=== PATIENT | male | born 1975 | race African-American/Black ===

== ENCOUNTER 2017-03-08 08:12 | Emergency (ER) | payer MEDICAID, OTHER ==
[~2017-03-08] VITALS: Ht 180.3 cm; Wt 82.0 kg
[~2017-03-08 08:12] MED LIST: OMEP20CA10 PO; ONDA4TAB21 PO
[2017-03-08] MEDS ORDERED: SODIUM CHLORIDE 0.9% 1,000 ML IV ONE (09:40)
[2017-03-08] MEDS ORDERED: MORPHINE SULFATE 4 MG/ML CPJ (NOT FOR IM USE) IV STA (09:40)
[2017-03-08] MEDS ORDERED: ONDANSETRON HCL 4MG/2ML VIAL IV ONE (09:45)
[2017-03-08 10:04] LABS: HEMATOCRIT. 38.7 % (42.0-52.0); HEMOGLOBIN. 13.4 g/dL (14.0-18.0); MEAN CORPUSCULAR HEMOGLOBIN 28.8 pg (28.0-32.0); MEAN CORPUSCULAR VOLUME 83.4 fL (80.0-94.0); MEAN PLATELET VOLUME 8.4 fl (7.4-10.4); PLATELET 177 x1000/uL (130-400); RED BLOOD CELL COUNT 4.64 mill/uL (4.7-6.1); RED CELL DISTRIBUTION WIDTH 11.4 % (11.6-14.6)
[2017-03-08 10:11] LABS: CHLORIDE 106 mEq/L (98-107)
[2017-03-08 10:19] LABS: CARBON DIOXIDE 26 mEq/L (21-32)
[2017-03-08 10:41] LABS: CLARITY URINE CLEAR (CLEAR); COLOR URINE DARK YELLOW (YELLOW); GLUCOSE URINE NEGATIVE (NEGATIVE); KETONES URINE TRACE (NEGATIVE); LEUKOCYTE ESTERASE URINE NEGATIVE (NEGATIVE); NITRITE URINE NEGATIVE (NEGATIVE); OCCULT BLOOD URINE NEGATIVE (NEGATIVE); PROTEIN URINE NEGATIVE (NEGATIVE); SPECIFIC GRAVITY URINE 1.026 (1.005-1.030)
[2017-03-08 11:08] LABS: PLATELET ESTIMATE NORMAL
[2017-03-08] MEDS ORDERED: IOHEXOL-300 100 ML BOTTLE ONE (11:28)
[2017-03-08] MEDS ORDERED: SODIUM CHLORIDE 0.9% 10ML VIAL ONE (11:28)
[2017-03-08 13:37] VITALS: BP 138/67
[2017-04-05] MEDS ORDERED: IBUP-2030 PO (02:04)
== END 2017-03-08 13:39 | disposition home or self-care (01) ==
LOC: ER 08:12
DX: K21.9 Gastro-esophageal reflux disease without esophagitis (principal); E05.90 Thyrotoxicosis, unspecified without thyrotoxic crisis or storm; F12.10 Cannabis abuse, uncomplicated
CPT/HCPCS: 36415; 74177; 80053; 81003; 83690; 85025; 93005; 96374; 96375; 99285; A4216; J2270; J2405; J7030; Q9967; Z7610